=== PATIENT | male | born 1995 | race American Indian/Alaskan Native ===

== ENCOUNTER 2021-08-18 01:22 | Emergency (ER) | payer OTHER ==
[~2021-08-18] VITALS: Ht 182.9 cm; Wt 124.7 kg
[~2021-08-18 01:22] MED LIST: LAMO25; LEXAPRO PO; Lexapro 10 mg T10 MG PO; MINO100 PO; Norco 5-325 Ta1 EACH PO
[2021-08-18] MEDS ORDERED: Amoxicillin500 MG PO (01:44)
[2021-08-18] MEDS ORDERED: IBU600 MG PO (01:44)
== END 2021-08-18 01:49 | disposition home or self-care (01) ==
LOC: ER 01:22
DX: H66.91 Otitis media, unspecified, right ear (principal); F17.200 Nicotine dependence, unspecified, uncomplicated; Z91.038 Other insect allergy status; Z91.030 Bee allergy status; Z79.899 Other long term (current) drug therapy
CPT/HCPCS: A9270

== ENCOUNTER 2024-03-15 12:45 | Emergency (ER) | payer SELFPAY ==
[~2024-03-15] VITALS: Ht 182.9 cm; Wt 95.2 kg
[~2024-03-15 12:45] MED LIST changes: +Amoxicillin500 MG PO; +IBU600 MG PO
[2024-03-15] MEDS ORDERED: OxyCODONE HCL 5 MG TAB PO ONE (15:20)
[2024-03-15] MEDS ORDERED: AMOX500 PO (15:33)
[2024-03-15] MEDS ORDERED: OXAYDO5 M1 PO (15:33)
[2024-03-15 15:51] VITALS: BP 124/83
== END 2024-03-15 15:51 | disposition home or self-care (01) ==
LOC: ER 12:45
DX: K04.7 Periapical abscess without sinus (principal); F17.200 Nicotine dependence, unspecified, uncomplicated
CPT/HCPCS: 99282; A9270

== ENCOUNTER 2024-03-22 23:59 | Emergency (ER) | payer OTHER ==
[~2024-03-22] VITALS: Ht 182.9 cm; Wt 90.7 kg
[~2024-03-22 23:59] MED LIST changes: +AMOX500 PO; +OXAYDO5 M1 PO
[2024-03-23 00:11] VITALS: BP 132/88
== END 2024-03-23 00:22 | disposition home or self-care (01) ==
LOC: ER 23:59
DX: K08.89 Other specified disorders of teeth and supporting structures (principal); F17.200 Nicotine dependence, unspecified, uncomplicated; Z79.899 Other long term (current) drug therapy; Z91.030 Bee allergy status
CPT/HCPCS: 99282